=== PATIENT | female | born 1975 | race Caucasian/White ===

== ENCOUNTER 2018-05-01 14:35 | Emergency (ER) | payer OTHER ==
[~2018-05-01] VITALS: Ht 160 cm; Wt 83.5 kg
--- NOTE | 2018-05-01 14:35 | NUR ---
BIB SELF FOR LACERATION TO RIGHT KNEE S/P SLIPPED AND FALL, -KO, UTD WITH TETANUS SHOT, TO ER BED 1, HOOKED TO MONITOR, AWAITING MD REDDY
--- NOTE | 2018-05-01 14:45 | NUR ---
DR JOSEPH AT BEDSIDE FOR EVAL.
--- NOTE | 2018-05-01 16:47 | NUR ---
Patient discharged to home in stable condition. Written and verbal after care instructions given. Patient verbalizes understanding of instruction.
[2018-05-01 16:54] VITALS: BP 143/82
== END 2018-05-01 16:55 | disposition home or self-care (01) ==
LOC: ER 14:38
DX: S81.011A Laceration without foreign body, right knee, initial encounter (principal); Z98.890 Other specified postprocedural states; W01.0XXA Fall on same level from slipping, tripping and stumbling without subsequent striking against object, initial encounter; Y93.89 Activity, other specified; Y92.89 Other specified places as the place of occurrence of the external cause; Y99.8 Other external cause status
CPT/HCPCS: 12004; 73564; 99283; A4606; A6403